=== PATIENT | male | born 1975 | race Caucasian/White ===

== ENCOUNTER 2018-10-19 08:35 | Observation (INO) | payer OTHER ==
[2018-10-19 09:12] LABS: Absolute Lymphocytes (CBC) 1.1 K/uL (0.7-4.9); Absolute Neutrophil 11.5 K/uL (1.8-8.0); Basophils % 0.6 % (0-1.3); Eosinophils % 0.1 % (0-4.4); Hematocrit 47.2 % (39.6-49.0); MPV 8.7 fL (7.6-11.3); Monocytes % 7.2 % (3.3-12.3); RBC Red Blood Cell Count 5.12 M/uL (4.33-5.43)
[2018-10-19] MEDS ORDERED: ONDANSETRON 4 MG/2 ML VIAL ONE ×2 (09:21→12:16)
[2018-10-19] MEDS ORDERED: KETOROLAC 30 MG/ML INJ ONE ×2 (09:21→12:16)
[2018-10-19] MEDS ORDERED: NA CHLORIDE 0.9% 1,000 ML ONE (09:21)
[2018-10-19 09:29] LABS: Albumin 4.2 g/dL (3.4-5.0); Bilirubin Total 1.2 mg/dL (0.2-1.0); Potassium 3.9 mmol/L (3.5-5.1); Protein, Total 8.1 g/dL (6.4-8.2)
--- NOTE | 2018-10-19 09:48 | RAD REPORT ---
EXAM DESCRIPTION: CT - Abdomen Pelvis W Contrast - 10/19/2018 9:28 am CLINICAL HISTORY: Abdominal pain/right lower quadrant pain COMPARISON: none. TECHNIQUE: Computed axial tomography of the abdomen pelvis was obtained. 100 cc Isovue-300 was admin istered intravenously. Oral contrast was not requested which limits evaluation of bowel. All CT scans are performed using dose optimization technique as appropriate and may include automated exposure control or mA/KV adjustment according to patient size. FINDINGS: Fatty liver. Probable gallstones without gallbladder wall thickening Spleen, pancreas, adrenal and kidneys appear unremarkable. There is no evidence of diverticulitis. The bladder wall appears thickened which could be secondary t o incomplete distention or inflammation The appendix is dilated with adjacent stranding and small amount of ill-defined fluid within the surr ounding tissues. An abscess is not noted. IMPRESSION: Suppurative appendicitis
--- NOTE | 2018-10-19 09:53 | EDPHYS ---
Physician Documentation [facility] Name: Eric Baldwin Age: 43 yrs Sex: Male : 1975 Arrival Date: 10/19/2018 Time: 08:39 Bed 20 Private MD: None, None ED Physician Gilmar Rivera HPI: 10/19 08:54 This 43 yrs old Female presents to ER via Ambulatory with complaints of ps1 Abdominal Pain. 08:54 patient states that he has RLQ abdominal pain for 2 days that radiates to LUQ. Patient ps1 is s/p gastric sleeve 4 years ago. patient states that he has had retching and constipation. No other abdominal surgeries. Pain rated as moderate. Endorses fever yesterday Tmax 100.3. No remitting factors. . Historical: - Allergies: 08:48 No Known Allergies; ss - Home Meds: 08:48 None [Active]; ss - PMHx: 08:48 None; ss - PSHx: 08:48 gastric sleeve; ss - Immunization history:: Adult Immunizations up to date. - Social history:: Smoking status: Patient/guardian denies using tobacco. - Ebola Screening: : Patient denies exposure to infectious person Patient denies travel to an Ebola-affected area in the 21 days before illness onset. ROS: 08:54 Eyes: Negative for injury, pain, redness, and discharge, ENT: Negative for injury, ps1 pain, and discharge, Cardiovascular: Negative for chest pain, palpitations, and edema, Respiratory: Negative for shortness of breath, cough, wheezing, and pleuritic chest pain, MS/Extremity: Negative for injury and deformity, Skin: Negative for injury, rash, and discoloration. 08:54 Constitutional: Positive for fever. 08:54 Abdomen/GI: Positive for abdominal pain, nausea and vomiting, constipation. Exam: 08:56 Constitutional: This is a well developed, well nourished patient who is awake, alert, ps1 and in no acute distress. Head/Face: Normocephalic, atraumatic. Eyes: Pupils equal round and reactive to light, extra-ocular motions intact. Lids and lashes normal. Conjunctiva and sclera are non-icteric and not injected. Chest/axilla: Normal chest wall appearance and motion. Nontender with no deformity. No lesions are appreciated. Cardiovascular: Regular rate and rhythm. No gallops, murmurs, or rubs. Normal PMI, no JVD. No pulse deficits. Respiratory: Lungs have equal breath sounds bilaterally, clear to auscultation and percussion. No rales, rhonchi or wheezes noted. No increased work of breathing, no retractions or nasal flaring. Skin: Warm, dry with normal turgor. Normal color with no rashes, no lesions, and no evidence of cellulitis. MS/ Extremity: Pulses equal, no cyanosis. Neurovascular intact. Full, normal range of motion. Neuro: Awake and alert, GCS 15, oriented to person, place, time, and situation. Cranial nerves II-XII grossly intact. Sensory grossly intact. 08:56 Abdomen/GI: Inspection: abdomen appears normal, Bowel sounds: normal, Palpation: moderate abdominal tenderness, in the right lower quadrant, Indicators: McBurney's point is tender. Vital Signs: 08:48 Resp 16; Weight 97.52 kg; Height 5 ft. 10 in. (177.80 cm); Pain 7/10; ss 09:09 BP 113 / 89; Pulse 73; Resp 17; Temp 98.2; Pulse Ox 96% on R/A; mh5 10:14 BP 114 / 69; Pulse 80; Resp 18; Pulse Ox 99% on R/A; Pain 5/10; em 08:48 Body Mass Index 30.85 (97.52 kg, 177.80 cm) ss MDM: 08:57 Patient medically screened. ps1 09:52 Data reviewed: vital signs, nurses notes, lab test result(s), radiologic studies, and ps1 as a result, I will admit patient, administer antibiotics consulted Dr. Villegas. started zosyn. To see and evaluate patient. . 10/19 08:53 Order name: CBC with Diff; Complete Time: 09:20 ps1 10/19 08:53 Order name: Lipase; Complete Time: 09:31 ps1 10/19 08:53 Order name: CMP; Complete Time: 09:31 ps1 10/19 08:53 Order name: CT Abd/Pelvis - W/Contrast; Complete Time: 09:50 ps1 10/19 08:53 Order name: IV Saline Lock; Complete Time: 09:19 ps1 10/19 08:53 Order name: Labs collected and sent; Complete Time: 09:19 ps1 10/19 09:59 Order name: CONS Pharmacy Consult EDMS 10/19 09:59 Order name: NPO EDVT Administered Medications: 09:15 Drug: TORadol 30 mg Route: IVP; Site: right forearm; ss 11:01 Follow up: Response: No adverse reaction; Pain is decreased em 09:15 Drug: Zofran 4 mg Route: IVP; Site: right forearm; ss 10:07 Follow up: Response: No adverse reaction; Pain is decreased em 10:07 Follow up: Response: No adverse reaction; Nausea is decreased em 09:19 Drug: NS 0.9% 1000 ml Route: IV; Rate: 1 bolus; Site: right antecubital; em 11:01 Follow up: IV Status: Completed infusion; IV Intake: 1000ml em 10:06 Drug: Zosyn 3.375 grams Route: IVPB; Infused Over: 60 mins; Site: right forearm; em 11:10 Follow up: Response: No adverse reaction; IV Status: Completed infusion; IV Intake: em 100ml Disposition: 10/19/18 09:52 Hospitalization ordered by Rob Villegas for Observation. Preliminary diagnosis is Acute appendicitis. - Bed requested for Telemetry/MedSurg (observation). - Status is Observation. em - Condition is Stable. - Problem is new. - Symptoms are unchanged. UTI on Admission? No Signatures: Dispatcher [employer] EDVT Beck Calle, CUSTOMER SUPPORT ASSOCIATE CUSTOMER SUPPORT ASSOCIATE em Nallely Cedeno RN RN ss Gilmar Rivera MD MD ps1 Corrections: (The following items were deleted from the chart) 10:36 09:52 Hospitalization Ordered by Rob Villegas MD for Observation. Preliminary ss diagnosis is Acute appendicitis. Bed requested for Telemetry/MedSurg (observation). Status is Observation. Condition is Stable. Problem is new. Symptoms are unchanged. UTI on Admission? No. ps1 11:21 10:36 10/19/2018 09:52 Hospitalization Ordered by Rob Villegas MD for Observation. em Preliminary diagnosis is Acute appendicitis. Bed requested for Telemetry/MedSurg (observation). Status is Observation. Condition is Stable. Problem is new. Symptoms are unchanged. UTI on Admission? No. ss
--- NOTE | 2018-10-19 09:53 | ER ---
Nurse's Notes [facility] Name: Eric Baldwin Age: 43 yrs Sex: Male : 1975 Arrival Date: 10/19/2018 Time: 08:39 Bed 20 Private MD: None, None Diagnosis: Acute appendicitis Presentation: 10/19 08:46 Presenting complaint: Patient states: RLQ pain that radiates towards LUQ that began 2 ss days ago with N/V. Spouse reports that patient began running a fever last night. Transition of care: patient was not received from another setting of care. Onset of symptoms was October 16, 2018. Risk Assessment: Do you want to hurt yourself or someone else? Patient reports no desire to harm self or others. Initial Sepsis Screen: Does the patient meet any 2 criteria? No. Patient's initial sepsis screen is negative. Does the patient have a suspected source of infection? No. Patient's initial sepsis screen is negative. Care prior to arrival: None. 08:46 Method Of Arrival: Ambulatory ss 08:46 Acuity: LENIN 3 ss Historical: - Allergies: 08:48 No Known Allergies; ss - Home Meds: 08:48 None [Active]; ss - PMHx: 08:48 None; ss - PSHx: 08:48 gastric sleeve; ss - Immunization history:: Adult Immunizations up to date. - Social history:: Smoking status: Patient/guardian denies using tobacco. - Ebola Screening: : Patient denies exposure to infectious person Patient denies travel to an Ebola-affected area in the 21 days before illness onset. Screenin:50 Abuse screen: Denies threats or abuse. Nutritional screening: No deficits noted. em Tuberculosis screening: No symptoms or risk factors identified. Fall Risk None identified. Assessment: 09:05 General: Appears in no apparent distress. comfortable, Behavior is calm, cooperative, em Denies fever. Pain: Complains of pain in right lower quadrant Pain radiates to left upper quadrant Pain currently is 7 out of 10 on a pain scale. Pain began 2-3 days ago. Neuro: Level of Consciousness is awake, alert, obeys commands, Oriented to person, place, time, situation. Cardiovascular: Capillary refill < 3 seconds Patient's skin is warm and dry. Respiratory: Airway is patent Respiratory effort is even, unlabored, Respiratory pattern is regular, symmetrical, Breath sounds are clear bilaterally. GI: Abdomen is flat, Bowel sounds present X 4 quads. Abd is soft X 4 quads Abdomen is tender to palpation in right lower quadrant Reports nausea, Patient currently denies diarrhea, vomiting. Derm: Skin is intact, is healthy with good turgor, Skin is pink, warm \T\ dry. Musculoskeletal: Capillary refill < 3 seconds, Range of motion: intact in all extremities. 09:15 Reassessment: The previous assessment is accurate, call light remains within reach. 10:19 Reassessment: Patient appears in no apparent distress at this time. Patient and/or em family updated on plan of care and expected duration. Pain level reassessed. Patient is alert, oriented x 3, equal unlabored respirations, skin warm/dry/pink. reports feeling better, rates pain 5/10, pending room assignment Patient states symptoms have improved. 10:53 Reassessment: Patient appears in no apparent distress at this time. Patient and/or em family updated on plan of care and expected duration. Pain level reassessed. Patient is alert, oriented x 3, equal unlabored respirations, skin warm/dry/pink. floor nurse unavailable at this time, will call back. Vital Signs: 08:48 Resp 16; Weight 97.52 kg; Height 5 ft. 10 in. (177.80 cm); Pain 7/10; ss 09:09 BP 113 / 89; Pulse 73; Resp 17; Temp 98.2; Pulse Ox 96% on R/A; mh5 10:14 BP 114 / 69; Pulse 80; Resp 18; Pulse Ox 99% on R/A; Pain 5/10; em 08:48 Body Mass Index 30.85 (97.52 kg, 177.80 cm) ED Course: 08:39 Patient arrived in ED. mr 08:40 None, None is Private Physician. mr 08:47 Triage completed. ss 08:48 Gilmar Rivera MD is Attending Physician. ps1 08:48 Arm band placed on right wrist. ss 08:58 Beck Calle LVN is Primary Nurse. em 09:00 Initial lab(s) drawn, by in, sent to lab. Inserted saline lock: 20 gauge in right em forearm, using aseptic technique. Blood collected. 09:09 Radiology exam delayed due to IV insertion attempt and/or patient not having vm2 appropriate IV at this time. 09:10 Patient has correct armband on for positive identification. Placed in gown. Bed in low mh5 position. Call light in reach. Pillow given. Pulse ox on. NIBP on. 09:[address] completed. Patient tolerated procedure well. Patient moved back from CT. 09:29 CT Abd/Pelvis - W/Contrast In Process Unspecified. EDMS 09:52 Rob Villegas MD is Hospitalizing Provider. ps1 10:59 No provider procedures requiring assistance completed. Patient admitted, IV remains in em place. Administered Medications: 09:15 Drug: TORadol 30 mg Route: IVP; Site: right forearm; ss 11:01 Follow up: Response: No adverse reaction; Pain is decreased em 09:15 Drug: Zofran 4 mg Route: IVP; Site: right forearm; ss 10:07 Follow up: Response: No adverse reaction; Pain is decreased em 10:07 Follow up: Response: No adverse reaction; Nausea is decreased em 09:19 Drug: NS 0.9% 1000 ml Route: IV; Rate: 1 bolus; Site: right antecubital; em 11:01 Follow up: IV Status: Completed infusion; IV Intake: 1000ml em 10:06 Drug: Zosyn 3.375 grams Route: IVPB; Infused Over: 60 mins; Site: right forearm; em 11:10 Follow up: Response: No adverse reaction; IV Status: Completed infusion; IV Intake: em 100ml Intake: 11:01 IV: 1000ml; Total: 1000ml. em 11:10 IV: 100ml; Total: 1100ml. em Outcome: 09:52 Decision to Hospitalize by Provider. ps1 10:59 Admitted to Med/surg accompanied by tech, family with patient, via wheelchair, room em 228, with chart, Report called to JANETH Aparicio 10:59 Condition: good 10:59 Instructed on the need for admit, Demonstrated understanding of instructions. 11:21 Patient left the ED. em Signatures: Dispatcher [employer] Chela Dahl mr GonzalezLynsey Edgar, INVESTIGATIVE AGENT INVESTIGATIVE AGENT em Nallely Cedeno RN RN ss Martinez, Maria [facility] Haylie Rosas 2 Gilmar Rivera MD MD ps1
[2018-10-19] MEDS ORDERED: MORPHINE 4 MG/ML SYR IV PRN ×2 (09:55→13:15)
[2018-10-19] MEDS ORDERED: ONDANSETRON 4 MG/2 ML VIAL IV PRN (09:55)
[2018-10-19] MEDS: NA CHLORIDE 0.9% 1,000 ML IV SCH (10:00)
[2018-10-19] MEDS ORDERED: PIPER/TAZO/NS 3.375gm 3.375 GM/100 ML BAG ONE (10:11)
[2018-10-19] MEDS ORDERED: BUPIVACAINE 0.5% PF 10 ML VIAL ONE (11:36)
[2018-10-19] MEDS ORDERED: Ringers Lactate 1,000 ML IV ONE (11:40)
[2018-10-19] MEDS ORDERED: FENTANYL CITR 100 MCG/2 ML ONE (11:47)
[2018-10-19] MEDS ORDERED: PROPOFOL 200 MG/20 ML VIAL IV ONE (11:47)
[2018-10-19] MEDS ORDERED: LIDOCAINE 2% MPF 5 ML VIAL ONE (11:47)
[2018-10-19] MEDS ORDERED: ROCURONIUM 50 MG/5 ML VIAL IV ONE (11:47)
--- NOTE | 2018-10-19 11:56 | P.HP ---
Date of Service: 10/19/18 PC: This 43-year-old male presents with the right lower quadrant abdominal pain for diagnosis and treatment. HPC: Patient and our last night, ate some crawfish. Noticed shortly thereafter he is beginning to have some abdominal discomfort. Pain today has localized to the right lower quadrant became so severe that he went to the emergency room PMH: Negative PSHx: Gastric sleeve SOC: No known allergies SYS REVIEW: No cough, wheeze, shortness of breath. No chest pain or palpitations. Good exercise tolerance, plays softball O/E awake alert mildly uncomfortable HEENT: Not icteric Chest: Chest movement equal bilaterally ABD: Tender with guarding in the right lower quadrant LOCO: Intact DATA: Elevated white cell count, CT scan demonstrates acute appendicitis IMPRESSION: Acute abdomen with acute appendix PLAN: I will take him the operating room for laparoscopic possible open appendectomy. The risks of this procedure have been discussed. The possibility of bleeding, infection, injury to bowel blood vessels and surrounding structures has been outlined. The possible need for an open and/or further surgeries and procedures was discussed. He understands and wants us to proceed.
[2018-10-19] MEDS ORDERED: DEXAMETHASONE 10 MG/ML VIAL ONE (12:16)
[2018-10-19] MEDS ORDERED: GLYCOPYRROLATE 0.2 MG/ML SYR ONE (12:35)
[2018-10-19] MEDS ORDERED: NEOSTIGMINE 1 MG/ML -10 ML VIAL ONE (12:37)
--- NOTE | 2018-10-19 12:48 | P.OP ---
Preoperative diagnosis: Acute appendicitis Postoperative diagnosis: Acute supportive appendicitis Primary procedure: Laparoscopic appendectomy Anesthesia: General Estimated blood loss: Less than 10 cc Specimen: 1 appendix sent for histopathology Operative Technique: The patient brought the operating room and placed supine on the table. After the induction of adequate general endotracheal anesthesia, the area of the abdomen was prepped with a DuraPrep solution common use draped in usual aseptic manner. A subumbilical incision was made. This brought down through the skin and subcutaneous tissue. The Visiport was now used to enter the peritoneal cavity and created pneumoperitoneum to approximately 12 mm of mercury. Under direct vision a 5 mm trocar was placed in the right upper quadrant and another in the lower midline. The patient was now placed in reverse Trendelenburg the table was tilted towards the left. We could visualize the right lower quadrant. We could see stuck along the right lateral sidewall of the abdomen just at the junction of the pelvis and acutely inflamed separate of appendix. There was adherence to the high anterior abdominal wall. These adhesions were gently taken down using blunt dissection. The appendix was fully identified. At the junction of the appendix with the cecum. A window was made in the mesentery of the appendix. We were now able to introduce the stapling device. The isthmus placed across the tissue fired. Attention was now turned towards the mesentery of the appendix. It was quite edematous. It was crit gently grafts to thin out some of the omentum is fluid. A vascular reload was now placed across the mesentery of the appendix and fired. The appendix was fully detached. It was placed to an Endo Close and brought out through the umbilical trocar site. At this point the abdomen was inspected to ensure adequate hemostasis. The right lower quadrant was irrigated with a saline solution until the effluent was clear. The Endo Close was now used to approximate the umbilical facile defect. 2 sutures were necessary as the patient has a mild umbilical hernia noticed on entry into the abdomen. At this point the pneumoperitoneum was collapsed, the sutures tied, and boaz applied to the skin. At the end of procedure he was stable when sent to the recovery room. Needle sponge instrument count were correct. No drains were placed. Marcaine was used to provide for a trans abdominal preperitoneal block at the end of the case under direct vision. Complications: None Transferred to: Recovery Room Condition: Good
[2018-10-19 13:55] VITALS: BMI 30.8
[2018-10-19] MEDS: HYDROCODONE/APAP 7.5/325 MG TAB PO PRN (20:55)
[2018-10-19 21:55] VITALS: O2SAT 92
[2018-10-19 21:58] LABS: Urine Appearance CLEAR; Urine Bilirubin NEGATIVE (NEG); Urine Blood NEGATIVE (NEG); Urine Color YELLOW; Urine Glucose NEGATIVE (NEG); Urine Protein NEGATIVE (NEG)
[2018-10-19 21:59] LABS: Urine Microscopic Reflex NO UMIC
[2018-10-20] MEDS: NA CHLORIDE 0.9% 1,000 ML IV SCH ×2 (00:23→06:00)
[2018-10-20] MEDS: HYDROCODONE/APAP 7.5/325 MG TAB PO PRN ×2 (05:14→10:32)
[2018-10-20 08:52] VITALS: BP 113/64; TEMP 97.3
== END 2018-10-20 11:56 | disposition home or self-care (01) ==
LOC: EDSEX 08:35 → ER 08:35 → ERHOLD 09:56 → 2ND 11:00
PROVIDERS: ADMIT Surgery; ATTEND Surgery
PROC: 0DTJ4ZZ Resection of Appendix, Percutaneous Endoscopic Approach (ICD-10-PCS; principal; 2018-10-19 11:13)
DX: K35.80 Unspecified acute appendicitis (principal); Z98.84 Bariatric surgery status
CPT/HCPCS: 36415; 74177; 80053; 81003; 83690; 85025; 88304; 96361; 96365; 96375; 99285; G0378; J1100; J2405; J2543; J2704; J2710; J3010; J7030; Q9967

== ENCOUNTER 2020-08-17 09:05 | Emergency (ER) | payer OTHER ==
[2020-08-17] MEDS ORDERED: dexAMETHasone 10 MG/ML VIAL ONE (09:39)
[2020-08-17] MEDS ORDERED: FAMOTIDINE 20 MG TAB ONE (09:39)
[2020-08-17] MEDS ORDERED: DIPHENHYDRAMINE 25 MG TAB/CAP ONE (09:39)
--- NOTE | 2020-08-17 10:09 | ER ---
Nurse's Notes [facility] Name: Eric Baldwin Age: 45 yrs Sex: Male : 1975 Arrival Date: 08/17/2020 Time: 09:06 Bed 12 Private MD: Diagnosis: Allergic contact dermatitis Presentation: 08/17 09:09 Chief complaint: Rash on arms, face, neck, and groin after poison john exposure 3 days hb ago. Coronavirus screen: At this time, the client does not indicate any symptoms associated with coronavirus-19. Ebola Screen: No symptoms or risks identified at this time. Onset: The symptoms/episode began/occurred 3 day(s) ago. Anaphylaxis evaluation, no signs or symptoms of anaphylaxis were noted. Initial Sepsis Screen: Does the patient meet any 2 criteria? No. Patient's initial sepsis screen is negative. Does the patient have a suspected source of infection? No. Patient's initial sepsis screen is negative. Risk Assessment: Do you want to hurt yourself or someone else? Patient reports no desire to harm self or others. Onset of symptoms was August 15, 2020. 09:09 Method Of Arrival: Ambulatory hb 09:09 Acuity: LENIN 4 hb Triage Assessment: 09:10 General: Appears in no apparent distress. Behavior is calm, cooperative. Pain: Pain hb currently is 3 out of 10 on a pain scale. EENT: Eyes mild right periorbital swelling. Reports difficulty swallowing. Neuro: Level of Consciousness is awake, alert, obeys commands, Oriented to person, place, time, situation. Cardiovascular: Capillary refill < 3 seconds Patient's skin is warm and dry. Respiratory: Respiratory effort is even, unlabored, Respiratory pattern is regular, symmetrical. GI: No signs and/or symptoms were reported involving the gastrointestinal system. : No signs and/or symptoms were reported regarding the genitourinary system. Derm: Reports rash on penis and groin, arms, neck, and face. Musculoskeletal: No signs and/or symptoms reported regarding the musculoskeletal system. Historical: - Allergies: : No Known Allergies; hb - PSHx: 09: gastric sleeve; hb - Immunization history:: Adult Immunizations up to date. - Social history:: Smoking status: Patient denies any tobacco usage or history of. Screenin:27 Abuse screen: Denies threats or abuse. Denies injuries from another. Nutritional hb screening: No deficits noted. Tuberculosis screening: No symptoms or risk factors identified. Fall Risk None identified. Assessment: 09:11 General: see triage assessment . hb Vital Signs: 09:09 BP 123 / 92; Pulse 86; Resp 16; Temp 98.1; Pulse Ox 100% on R/A; Weight 108.86 kg; hb Height 5 ft. 10 in. (177.80 cm); Pain 3/10; 09:09 Body Mass Index 34.44 (108.86 kg, 177.80 cm) hb ED Course: 09:06 Patient arrived in ED. as 09:12 Triage completed. hb 09:13 Arm band placed on. hb 09:14 Duran Beebe NP is PHCP. pm1 09:14 Alexandr Ortiz MD is Attending Physician. pm1 09:20 Norma Rueda RN is Primary Nurse. hb 09:27 Patient has correct armband on for positive identification. hb Administered Medications: 09:30 Drug: Pepcid 20 mg Route: PO; hb 09:30 Drug: Decadron 10 mg Route: IM; Site: left deltoid; hb 09:30 Drug: Benadryl 25 mg Route: PO; hb Outcome: 10:08 Discharge ordered by . pm1 10:21 Patient left the ED. hb Signatures: Jing Anthony as Duran Beebe NP [employer] pm1 Norma Rueda, RN RN hb Corrections: (The following items were deleted from the chart) 09:13 09:09 BP 123 / 92; Pulse 86bpm; Resp 16bpm; Pulse Ox 100% RA; Temp 98.1F; Pain 3/10; hb hb 09:16 09:09 Chief complaint: Rash on arms, face, and neck after poison john exposure 3 days hb ago. hb
--- NOTE | 2020-08-17 10:09 | EDPHYS ---
Physician Documentation [facility] Name: Eric Baldwin Age: 45 yrs Sex: Male : 1975 Arrival Date: 08/17/2020 Time: 09:06 Bed 12 Private MD: ED Physician Alexandr Ortiz HPI: 08/17 09:20 This 45 yrs old Male presents to ER via Ambulatory with complaints of Facial pm1 Swelling, Allergic Reaction, Difficulty Swallowing. 09:20 The patient's rash thought to be caused by poison ivory exposure. The rash is located on pm1 the face, groin and neck. The rash can be described as raised, urticarial. Onset: The symptoms/episode began/occurred 3 day(s) ago. Associated signs and symptoms: Pertinent positives: itching, sore throat, Pertinent negatives: fever, swelling of lips, swelling of tongue, vomiting, wheezing. Severity of symptoms: in the emergency department the symptoms are worse. Treatment given at home: Benadryl, yesterday. The patient has experienced similar episodes in the past, a few times, but today's symptoms are worse. The patient has not recently seen a physician. Historical: - Allergies: 09:13 No Known Allergies; hb - PSHx: 09:13 gastric sleeve; hb - Immunization history:: Adult Immunizations up to date. - Social history:: Smoking status: Patient denies any tobacco usage or history of. ROS: 09:20 Constitutional: Negative for fever, chills, and weight loss. pm1 09:20 Cardiovascular: Negative for chest pain, palpitations, and edema, Respiratory: Negative for shortness of breath, cough, wheezing, and pleuritic chest pain, Abdomen/GI: Negative for abdominal pain, nausea, vomiting, diarrhea, and constipation, Back: Negative for injury and pain, MS/Extremity: Negative for injury and deformity. 09:20 Neuro: Negative for headache, weakness, numbness, tingling, and seizure. 09:20 ENT: Positive for difficulty swallowing, sore throat, Negative for ear pain. 09:20 Skin: Positive for rash, of the neck and face and groin. Exam: 09:20 Constitutional: This is a well developed, well nourished patient who is awake, alert, pm1 and in no acute distress. Head/Face: Normocephalic, atraumatic. 09:20 Neck: Trachea midline, no thyromegaly or masses palpated, and no cervical lymphadenopathy. Supple, full range of motion without nuchal rigidity, or vertebral point tenderness. No Meningismus. 09:20 ENT: External ear(s): swelling, that is minimal, bilaterally, Mouth: is normal, no abscess, no drooling, (-) trismus Lips: normal, no swelling, Oral mucosa: normal, pink and intact, Posterior pharynx: is normal, airway is patent, no erythema, no exudate, no peritonsilar mass, no pooling of secretions, no swelling, Voice: negative for hoarseness. 09:20 Cardiovascular: Exam negative for acute changes, Rate: normal, Rhythm: regular, Pulses: no pulse deficits are appreciated. 09:20 Respiratory: Exam negative for acute changes, respiratory distress, shortness of breath. 09:20 Skin: Appearance: normal except for affected area, consistent with contact dermatitis, urticaria. 09:20 Neuro: Exam negative for acute changes, Orientation: is normal, Mentation: is normal, Motor: is normal, moves all fours. Vital Signs: 09:09 BP 123 / 92; Pulse 86; Resp 16; Temp 98.1; Pulse Ox 100% on R/A; Weight 108.86 kg; hb Height 5 ft. 10 in. (177.80 cm); Pain 3/10; 09:09 Body Mass Index 34.44 (108.86 kg, 177.80 cm) hb MDM: 09:19 Patient medically screened. pm1 09:37 Data reviewed: vital signs. Data interpreted: Pulse oximetry: on room air is 100 %. pm1 Interpretation: normal. 10:07 Counseling: I had a detailed discussion with the patient and/or guardian regarding: the pm1 historical points, exam findings, and any diagnostic results supporting the discharge/admit diagnosis, the need for outpatient follow up, a party demonstrator, a family practitioner, to return to the emergency department if symptoms worsen or persist or if there are any questions or concerns that arise at home. Administered Medications: 09:30 Drug: Pepcid 20 mg Route: PO; hb 09:30 Drug: Decadron 10 mg Route: IM; Site: left deltoid; hb 09:30 Drug: Benadryl 25 mg Route: PO; hb Disposition: 08/18 07:51 Co-signature as Attending Physician, Alexandr Ortiz MD I agree with the assessment and [facility] plan of care. Disposition: 08/17/20 10:08 Discharged to Home. Impression: Allergic contact dermatitis. - Condition is Stable. - Discharge Instructions: Poison Ivory Dermatitis. - Prescriptions for Benadryl 25 mg Oral Capsule - take 1 capsule by ORAL route every 6 hours As needed; 30 tablet. Pepcid 20 mg Oral Tablet - take 1 tablet by ORAL route every 12 hours for 10 days; 20 tablet. Medrol (Ravi) 4 mg Oral Tablets, Dose Pack - take 1 tablet by ORAL route as directed - follow package instructions; 1 packet. - Medication Reconciliation Form, Thank You Letter, Antibiotic Education, Prescription Opioid Use form. - Follow up: Emergency Department; When: As needed; Reason: Worsening of condition. Follow up: Private Physician; When: 2 - 3 days; Reason: Recheck today's complaints, Continuance of care, Re-evaluation by your physician. - Problem is new. - Symptoms have improved. Signatures: Alexandr rOtiz MD MD cha Marinas, Patrick, APARTMENT COMMUNITY ASSISTANT MANAGER APARTMENT COMMUNITY ASSISTANT MANAGER pm1 Norma Rueda RN RN Corrections: (The following items were deleted from the chart) 08/17 10:21 10:08 08/17/2020 10:08 Discharged to Home. Impression: Allergic contact dermatitis. hb Condition is Stable. Forms are Medication Reconciliation Form, Thank You Letter, Antibiotic Education, Prescription Opioid Use. Follow up: Emergency Department; When: As needed; Reason: Worsening of condition. Follow up: Private Physician; When: 2 - 3 days; Reason: Recheck today's complaints, Continuance of care, Re-evaluation by your physician. Problem is new. Symptoms have improved. pm1
[2020-08-17 10:25] VITALS: BP 123/92; TEMP 98.1; O2SAT 100
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
--- OUTSIDE RECORDS SUMMARY | 2020-08-18 05:43 | XMS REPORT | Clinical Summary ---
:1975 Author Organization [facility] Address [address] [place] [id number] Care Team Providers Name Role Phone Asked, No Pcp Primary Care Provider Unavailable Allergies No Known Active Allergies Medications No known medications Active Problems Not on file Surgical History Surgery Date Site/Laterality Comments MASTECTOMY OTHER SURGICAL HISTORY gastric s leeve Social History Tobacco Use Types Packs/Day Years Used Date Never Smoker Alcohol Use Drinks/Week oz/Week Comments Yes "Occasionally" Sex Assigned at Date Recorded Not on file Last Filed Vital Signs Not on file Plan of Treatment Health Maintenance Due Date Last Done Comments COVID-19 VACCINE (1 of 2) 1991 HEPATITIS C SCREENING 1993 INFLUENZA VACCINE 02/07/2020 Results Not on fileafter 08/17/2019 [place] ([place], [place] [address] Advance Directives For more information, please contact: [phone] Type Date Recorded Patient Report Developer Explanati on Advance Directives, Living 05/05/2017 9:24 AM Will and Medical Power of [place] Farmer
--- OUTSIDE RECORDS SUMMARY | 2020-08-18 05:43 | XMS REPORT | Clinical Summary ---
:1975 Author Organization [facility] Address [address] [place] [address] Care Team Providers Name Role Phone Unavailable Primary Care Provider Unavailable Allergies Not on File Medications Medication Sig Dispensed Refills Start Date End Date Status chlordiazePOXIDE Day 1: Take 2 pills by mouth every 6 hours. 15 cap ervin 0 07/18/2018 Active (LIBRIUM) 25 mg Day 2: Take 1 pill by mouth every 6 hours. capsuleIndications: Day 3: Take 1 pill by mouth every 12 hours. Alcohol withdrawal Day 4: Take 1 pill by mouth at night.. 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
== END 2020-08-17 10:21 | disposition home or self-care (01) ==
LOC: ER 09:05
DX: L23.7 Allergic contact dermatitis due to plants, except food (principal)
CPT/HCPCS: 96372; 99282; J1100

== ENCOUNTER 2021-03-04 06:24 | Day surgery (SDC) | payer OTHER ==
[2021-03-03 15:42] LABS: Absolute Lymphocytes (CBC) 1.8 K/uL (0.7-4.9); Basophils % 0.7 % (0-1.3); Hematocrit 45.4 % (39.6-49.0); Lymphocytes % 22.5 % (15.3-44.8); MPV 8.3 fL (7.6-11.3)
[2021-03-03 15:55] LABS: Potassium 4.4 mmol/L (3.5-5.1)
--- NOTE | 2021-03-03 16:07 | RAD REPORT ---
EXAM DESCRIPTION: RAD - Chest Pa And Lat (2 Views) - 03/03/2021 3:58 pm CLINICAL HISTORY: pre procedure COMPARISON: No comparisons FINDINGS: No evidence of edema or pneumonia. The heart size is within normal limits.No acute osseous abnormality. No significant pleural effusions or pneumothorax. IMPRESSION: No acute cardiopulmonary disease.
[2021-03-04] MEDS ORDERED: Ringers Lactate 1,000 ML IV ONE (06:58)
[2021-03-04] MEDS: CEFAZOLIN/SWI 1gm 1 GM/10 ML SYR ONE ×2 (07:21→07:40)
[2021-03-04] MEDS ORDERED: BUPIVACAINE 0.5% PF 10 ML VIAL ONE (07:40)
[2021-03-04] MEDS ORDERED: propofoL 200 MG/20 ML VIAL IV ONE (07:48)
[2021-03-04] MEDS ORDERED: FENTANYL CITR 100 MCG/2 ML ONE ×2 (07:48→08:28)
[2021-03-04] MEDS ORDERED: ROCURONIUM 50 MG/5 ML VIAL IV ONE ×2 (07:48→09:02)
[2021-03-04] MEDS ORDERED: MIDAZOLAM HCL 2 MG/2 ML INJ ONE (07:49)
[2021-03-04] MEDS ORDERED: LIDOCAINE 1% MPF 5 ML VIAL ONE (07:49)
[2021-03-04] MEDS ORDERED: KETOROLAC 30 MG/ML INJ ONE (08:29)
[2021-03-04] MEDS ORDERED: GLYCOPYRROLATE 0.2 MG/ML SYR ONE (08:29)
[2021-03-04] MEDS ORDERED: ONDANSETRON 4 MG/2 ML VIAL ONE (08:30)
[2021-03-04] MEDS ORDERED: NEOSTIGMINE 1 MG/ML -5 ML ONE (08:30)
[2021-03-04] MEDS: HYDROMORPHONE HCL 1 MG/ML INJ ONE ×5 (09:25→09:54)
[2021-03-04] MEDS ORDERED: PROMETHAZINE INJ 25 MG/ML AMP ONE (09:47)
[2021-03-04 10:40] VITALS: BP 130/70; TEMP 97; O2SAT 98
[2021-03-04] MEDS ORDERED: HYDROCODONE/APAP 7.5/325 MG TAB ONE (10:50)
--- NOTE | 2021-03-04 16:31 | OP ---
Date of Procedure: 03/04/2021 Surgeon: Williams Sneed MD Freight Service Inspector: Benson Parsons, surgical technologist, certified. Preoperative Diagnosis: Incarcerated ventral hernia. Postoperative Diagnosis: Incarcerated ventral hernia. Procedure: Laparoscopic repair of incarcerated ventral hernia. Estimated Blood Loss: Minimal. Specimens: Hernia sac. Findings: As above. Anesthesia: General. Complications: None. Disposition: The patient tolerated the procedure in stable condition and taken to recovery in good g eneral condition. Operative Note: The patient was brought to the OR and placed in supine position. General anesthesia was begun. The patient was prepped and draped in usual sterile fashion. Marcaine 0.5% was infiltra susan locally for postop pain control. A 15 blade was used to make a 2 cm left upper quadrant incision . Subcutaneous tissue was divided. Fascia identified and divided. #1 Vicryl stay suture was placed . Peritoneal cavity was entered with sharp and blunt dissection. A 12 mm trocar was placed into the peritoneal cavity under direct vision. Pneumoperitoneum was established and then 5 mm [address] was pl aced in the left lower quadrant. Laparoscopy revealed a 6 x 6 cm hernia opening. Small bowel was pr esent which was easily reduced from the hernia and then a 6 cm incision was made in the epigastric re gion just to the right of midline over the hernia sac. Subcutaneous tissue was divided. Hernia sac was identified and freed from the fascial edges with sharp and blunt dissection. Bleeding was contro lled cautery and 3-0 silk ties. Then, the hernia sac was excised and the hernia defect was reapproxi mated using #1 Prolene running suture. Complete coverage of the hernia sac was accomplished followin g which pneumoperitoneum was re-established and then a Bard mesh complex 15 x 10 cm oval in shape was introduced into the peritoneal cavity. Standard mechanism was utilized to secure the mesh with Abso rbaTack to the peritoneal surface. All the components for deployment were retrieved intact. Complet e coverage of the hernia defect with at least 3 cm borders accomplished and subsequently t here was no evidence of bleeding or bowel injury appreciated. All trocars were removed under direct vision. stay Sutures were tied to each other across the fascial defect. There was a small opening i n the fascia and this was closed with a [id number] #1 Vicryl and then wound was irrigated. Blee ding was controlled with cautery. A 3-0 chromic was used to approximate subcutaneous tissue, and stap les were used to close the skin. Sterile dressing was applied. The patient was awakened and taken t o Recovery in good general condition. Discharge Note: The patient will go to Day Surgery and home when stable. Disposition: Home. Condition: Stable. Discharge Instructions: Resume home medications and diet. Activity as tolerated. No heavy lifting. Remove outer dressing in 2 days. Shower. Keep wound clean and dry. Follow up in my office in 1 w pala. Call for appointment. Tylenol No.3 one tablet p.o. q.4 p.r.n. pain and abdominal binder and in centive spirometry as ordered. /MODL Voice ID: [id number] Report ID: [id number]
== END 2021-03-04 11:52 | disposition home or self-care (01) ==
LOC: OR 06:24
PROVIDERS: ATTEND Surgery
PROC: 0WUF4JZ Supplement Abdominal Wall with Synthetic Substitute, Percutaneous Endoscopic Approach (ICD-10-PCS; principal; 2021-03-04 07:30)
DX: K43.6 Other and unspecified ventral hernia with obstruction, without gangrene (principal); Z20.822 Contact with and (suspected) exposure to COVID-19
CPT/HCPCS: 93005; 85025; 80048; 36415; 88302; 71046; 49653; U0003; J2704; J2550; J2250; J3010 ×2; J1170 ×2; J2710; J0690; J7120; J2405